=== PATIENT | male | born 1960 ===

== ENCOUNTER 2016-09-06 01:27 | Emergency (ER) | payer OTHER ==
[2016-09-06] MEDS ORDERED: Ondansetron INJ* 2 MG/ML VIAL IV ONE (02:12)
[2016-09-06] MEDS ORDERED: Morphine INJ* 4 MG/ML 1 ML CARPUJECT IV ONE (02:12)
[2016-09-06] MEDS ORDERED: diPHENhydraMINE IV* 50 MG/ML 1 ml VIAL (BENADRYL) IV ONE (03:18)
[2016-09-06 03:19] LABS: Hematocrit 42 % (42-52); Mean Corpuscular HGB Conc 33 g/dl (31-36); Mean Corpuscular Hemoglobin 32 pg (27-31); Mean Corpuscular Volume 96 fL (80-94); Mean Platelet Volume 8 um3 (7.4-10.4); Red Blood Count 4.37 10^6/ul (4.0-5.4); Red Cell Distribution Width 14 % (10.5-15); White Blood Count 11.6 10^3/ul (3.5-10.8)
[2016-09-06 03:27] LABS: BUN/Creatinine Ratio 15.4 (8-20); Calcium 8.9 mg/dL (8.6-10.3); EGFR African American 132.4 (>60)
[2016-09-06 03:30] LABS: Potassium 3.9 mmol/L (3.5-5.0)
[2016-09-06] MEDS ORDERED: oxyCODONE/Acetamin 5/325 MG* TAB PO ONE (05:36)
--- NOTE | 2016-09-06 07:54 | RAD ---
HISTORY: Fall, left arm injury COMPARISONS: None VIEWS: 2, frontal and oblique lateral views of the left elbow FINDINGS: Evaluation is limited by the lack of a true lateral projection. BONE DENSITY: Normal. BONES: There is no acute displaced fracture. There is remote posttraumatic deformity to the mid humerus and proximal ulna. JOINTS: There is no arthropathy. ALIGNMENT: There is no dislocation. SOFT TISSUES: Unremarkable. OTHER FINDINGS: None. IMPRESSION: LIMITED STUDY. NO ACUTE OSSEOUS INJURY. IF SYMPTOMS PERSIST, RECOMMEND REPEAT IMAGING.
--- NOTE | 2016-09-06 07:55 | RAD ---
HISTORY: Fall, left arm injury COMPARISONS: None VIEWS: 2, Frontal internal rotation and external rotation views of the left proximal humerus FINDINGS: BONE DENSITY: Normal. BONES: There is a comminuted somewhat displaced and angulated fracture of the surgical neck of the left humerus. There is remote posttraumatic deformity to the humeral diaphysis.. JOINTS: There is no arthropathy. ALIGNMENT: There is no dislocation. SOFT TISSUES: Unremarkable. OTHER FINDINGS: None. IMPRESSION: COMMINUTED, SOMEWHAT ANGULATED AND DISPLACED FRACTURE OF THE PROXIMAL LEFT HUMERUS
[2016-09-06 11:08] VITALS: BP 130/87
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
== END 2016-09-06 11:39 | disposition home or self-care (01) ==
LOC: ED 01:27
DX: S42.212A Unspecified displaced fracture of surgical neck of left humerus, initial encounter for closed fracture (principal); F10.129 Alcohol abuse with intoxication, unspecified; V19.9XXA Pedal cyclist (driver) (passenger) injured in unspecified traffic accident, initial encounter; Y93.9 Activity, unspecified; Y92.9 Unspecified place or not applicable; Y99.9 Unspecified external cause status
CPT/HCPCS: 36415; 80048; 80320; 85027; 96374; 96375; 99283; A9270-GY; G0480; J1200; J2270; J2405

== ENCOUNTER 2016-09-13 13:42 | Observation (INO) | payer OTHER ==
--- NOTE | 2016-09-13 02:22 | HP ---
HISTORY AND PHYSICAL: DATE OF ADMISSION: 09/13/16 HISTORY OF PRESENT ILLNESS: Porfirio had a CT scan of his left arm. He had a concerning proximal humerus fracture. Therefore, I ordered a CT scan. He says his pain is a lot better controlled since I gave him the pain medication; however, he takes about a quater pill, which helps balance the side effects for him. He denies any numbness or tingling. He denies any fevers or chills. No new injuries. He has been using the sling. The pain is now about a 3/10 as opposed to a 10/10 several days ago. He underwent CT scan yesterday. He is eager to find out the results. PAST MEDICAL HISTORY: Significant for fibromyalgia that was self treated and he no longer has chronic rash as well as a chronic rash in his feet. PAST SURGICAL HISTORY: Appendectomy 20 years ago. CURRENT MEDICATIONS: Include: 1. Vitamin D. 2. Creatine. 3. [place]on. 4. Percocet. 5. Ibuprofen. ALLERGIES: None. FAMILY HISTORY: Significant for father with diabetes, heart disease, CHF, and stroke. Grand mother with rheumatoid arthritis. SOCIAL HISTORY: He lives with his spouse. He works in IT. He denies tobacco. He reports being ambidextrous. He exercises occasionally. He rarely drinks alcohol. REVIEW OF SYSTEMS: A 14-point review of systems reviewed with the patient and significant for rash on his feet, heart palpitation, shortness of breath due to the pain. Negative for fever, chills, DVT, PE, bleeding disorder. Otherwise, reminder of the review of system is negative. PHYSICAL EXAMINATION GENERAL: He is in no acute distress. He is well developed, well nourished. He is alert and oriented x3. HEENT: EOMI. LUNGS: Chest is clear to auscultation. HEART: Regular rate and rhythm. ABDOMEN: Soft, nontender. EXTREMITIES: Examination of left shoulder demonstrates the skin is intact, but there is brushing up and under the arm. He is tender to palpitation over the proximal humerus. He has full range of the motion in elbow, wrist, and hand. He is sensitive to light touch about the first dorsal webspace and long finger and ulnar aspect of the small finger. Sensate about the lateral shoulder, he has 2+ radial pulse. CT scan was reviewed that demonstrates a head split comminuted proximal humerus fracture with the head split. ASSESSMENT AND PLAN: I reviewed the CT scan findings with him. Because of the head split, I am concerned about the perfusion of the head. Therefore, I talked to him about options. He is very young and it is not technically his dominant arm, but even though he is ambidextrous, I do think that because of his young age, I would recommended hemiarthroplasty versus a reverse shoulder arthroplasty. I would prefer to do the hemiarthroplasty because I feel that he is young and we could always transition him to a reverse, hopefully within 5 to 10 years, but there is not a lot of day left and he is on the young edge. However, if intra-op, I am unable to get good purchase and good reduction of the tuberosities, then I may have to consider reverse. Risks and benefits were discussed at length and included but are not limited to bleeding, infection, damage to nerve vessels, surrounding structures, dislocation, need for further surgery, failure to heal, failure of the implant, further fracture, persistent pain, damage to nerve vessels, surrounding structures, need for further surgery , risk of deep venous thrombosis versus anesthesia. He has elected to proceed. We talked about taking care of this on Tuesday. The plan is going to be for left shoulder hemiarthroplasty. We will plan to do this at [facility] [place]. He verbalized understanding, question were invited and answered. I will see the patient back at the time of surgery on 09/13/16. We have checked labs at today's visit. CC: HARRY* [id number]/[facility] #: [id number] BUTCH
[~2016-09-13 13:42] MED LIST: Buffered Lidocaine 1% SYR 3ML* 3 ML/SYR SYRINGE INTRADERM ONE; Famotidine IV* 10 MG/ML 2 ML (20 mg) IV ONE; HYDROcodone/ACETAMIN 5-325 MG* 1 TAB PO PRN; PROCHLORPERAZINE INJ 5 MG/ML 2 ML VIAL IV PRN; Scopolamine 1.5 mg* PATCH TRANSDERM SCH; fentaNYL* 50 MCG/ML 2 ML VIAL (100 MCG VIAL) IV PRN
[2016-09-13] MEDS ORDERED: fentaNYL* 50 MCG/ML 2 ML VIAL (100 MCG VIAL) ONE ×2 (16:12→17:44)
[2016-09-13] MEDS ORDERED: Atracurium* 10 MG/ML 10 ML VIAL ONE ×2 (16:12→19:28)
[2016-09-13] MEDS ORDERED: Midazolam* 1 MG/ML 5 ML VIAL (5 MG) ONE (16:13)
[2016-09-13] MEDS ORDERED: KETAMINE HCL* 50 MG/ML 10 ML VIAL ONE (16:13)
[2016-09-13] MEDS ORDERED: ceFAZolin 2 GM PREMIX (*) 2 GM/50 ML BAG IVPB ONE (16:51)
[2016-09-13] MEDS ORDERED: fentaNYL* 50 MCG/ML 5 ML VIAL (250 MCG VIAL) ONE ×2 (19:07→20:16)
[2016-09-13] MEDS ORDERED: Lidocaine 2% PF * 5 ML VIAL ONE (19:29)
[2016-09-13] MEDS ORDERED: Dexamethasone IV* 4 MG/ML 1 ML (4 MG) ONE (19:29)
[2016-09-13] MEDS ORDERED: Propofol* 10 MG/ML 20 ML BTL IV PUSH ONE (19:29)
[2016-09-13] MEDS ORDERED: PROCHLORPERAZINE INJ 5 MG/ML 2 ML VIAL ONE (19:29)
[2016-09-13] MEDS ORDERED: Phenylephrine INJ* 10 MG/ML 1 ML VIAL (10 MG) ONE (19:29)
[2016-09-13] MEDS ORDERED: Ondansetron INJ* 2 MG/ML VIAL ONE (19:29)
[2016-09-13] MEDS ORDERED: Midazolam* 1 MG/ML 2 ML VIAL (2 MG) ONE (21:16)
[2016-09-13] MEDS ORDERED: Bupivacaine 0.25% SDV* 30 ML ONE (22:20)
[2016-09-13] MEDS ORDERED: Glycopyrrolate IV* 0.2 MG/ML 1 ML VIAL ONE (22:21)
[2016-09-13] MEDS ORDERED: Neostigmine Methylsulfate* 2 MG/2 ML SYRINGE ONE (22:21)
[2016-09-13] MEDS ORDERED: Scopolamine 1.5 mg* PATCH ONE (22:21)
[2016-09-13] MEDS ORDERED: ceFAZolin 1 GM VIAL(*) ONE (22:24)
[2016-09-13] MEDS ORDERED: Metoprolol Tartrate IV* 1 MG/ML 5 ML VIAL ONE (22:34)
[2016-09-13] MEDS ORDERED: Acetaminophen TAB* 325 MG PO PRN (22:48)
[2016-09-13] MEDS ORDERED: Ondansetron INJ* 2 MG/ML VIAL IV PRN (22:48)
[2016-09-13] MEDS ORDERED: diPHENhydraMINE IV* 50 MG/ML 1 ml VIAL (BENADRYL) IV PRN (22:48)
[2016-09-13] MEDS ORDERED: traZODone TAB* 50 MG TAB PO PRN (22:48)
[2016-09-13] MEDS ORDERED: HYDROcodone/ACETAMIN 5-325 MG* 1 TAB PO PRN (23:02)
--- NOTE | 2016-09-13 23:12 | RAD ---
CPT II Codes: 6045F INDICATION: Internal fixation left shoulder. Fluoroscopic services provided for referring physician. 30.3 seconds of fluoroscopy time was used. There is left humeral head replacement and prosthesis present. IMPRESSION: Fluoroscopic services provided for referring physician.
[2016-09-13] MEDS ORDERED: Enoxaparin(*) 30 MG/0.3 ML SYR SUBCUT SCH (23:45)
[2016-09-13] MEDS ORDERED: LORazepam TAB(*) 1 MG PO SCH (23:45)
[2016-09-14] MEDS: ceFAZolin 1 GM in Dextrose (*) 1 GM/50 ML BAG IVPB SCH ×3 (01:59→13:48)
[2016-09-14 06:49] LABS: Hematocrit 25 % (42-52); Hemoglobin 8.6 g/dl (14.0-18.0)
[2016-09-14 07:06] LABS: BUN/Creatinine Ratio 16.3 (8-20); Calcium 8.1 mg/dL (8.6-10.3); EGFR African American 128.6 (>60); Potassium 4.2 mmol/L (3.5-5.0)
--- NOTE | 2016-09-14 07:25 | RAD ---
INDICATION: Left shoulder arthroplasty COMPARISON: September 07, 2016 TECHNIQUE: AP and lateral views were obtained. FINDINGS: There is interval placement of a left shoulder prosthesis which appears normally seated. Comminuted fractures of the proximal humeral metadiaphysis are close apposition. IMPRESSION: LEFT SHOULDER ARTHROPLASTY
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
[2016-09-14] MEDS: HYDROcodone/ACETAMIN 5-325 MG* 1 TAB PO PRN ×2 (07:39→10:10)
--- NOTE | 2016-09-14 08:01 | PN ---
Progress Note - Progress Note SOAP: Subjective: []Patient seen at bedside. Pain well managed left shoulder. Had to be straight cathed this am for urinary retention. Hoping to go home later today. His will pick him up later today if he is stable for discharge. Requesting Jackson to be dosed half a tab q 2 hours. Objective: [] Vital Signs Temp 98.8 F 09/14/16 06:25 Pulse 86 09/14/16 06:25 Resp 16 09/14/16 07:39 BP 111/73 09/14/16 06:25 Pulse Ox 98 09/14/16 06:25 Intake & Output 09/13/16 09/14/16 09/14/16 18:59 06:59 18:59 Intake Total 50 6105 Output Total 1150 Balance 50 4955 Weight 199 lb 3.2 oz Intake: IV Fluids 50 3700 LR 3700 NS 50ML, Cefazolin 2G 50 IVPB 55 ABX - CEFAZOLIN 55 Oral 2350 Output: Urine 0 Straight Cath 850 Estimated Blood Loss 300 Other: # Bowel Movements 0 Laboratory Results - last 24 hr 09/14/16 09/14/16 06:31 06:31 Hgb 8.6 L Hct 25 L Sodium 131 L Potassium 4.2 Chloride 95 L Carbon Dioxide 28 Anion Gap 8 BUN 13 Creatinine 0.80 Est GFR ( Amer) 128.6 Est GFR (Non-Af Amer) 100.0 BUN/Creatinine Ratio 16.3 Glucose 193 H Calcium 8.1 L Left shoulder currently in sling, comfortable Dressings clean, dry and intact moving all digits well, no edema of fingers, moderate eccymosis and edema upper arm/ elbow region neuro intact Assessment: []s/p left shoulder hemiarthroplasty for proximal humerus fracture POD #1 post op urinary retention hx of alcoholism Plan: []Change dosage of Jackson Sling at all times Shower in 2 days and re dress with bandaid follow up in 10-[address] Wyman.
[2016-09-14] MEDS ORDERED: Folic Acid TAB* 1 MG PO SCH (09:00)
[2016-09-14] MEDS ORDERED: Multivitamins/Minerals TAB PO SCH (09:00)
[2016-09-14] MEDS ORDERED: Vitamin THERAPEUTIC TAB PO SCH (09:00)
[2016-09-14] MEDS ORDERED: Docusate CAP* 100 MG PO SCH (09:00)
[2016-09-14] MEDS ORDERED: Thiamine TAB* 100 MG TAB PO SCH (09:00)
[2016-09-14] MEDS ORDERED: HYDROcodone/ACETAMIN 5-325 MG* 1 TAB PO PRN ×2 (11:02→13:57)
[2016-09-14 12:10] VITALS: BP 120/79
[2016-09-15] MEDS ORDERED: Influenza VAC *QUAD* 2016-17* 0.5 ML SYRINGE IM ONE (09:00)
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
[2016-09-16] MEDS ORDERED: Scopolamine PATCH Remove* 1 NOTE MISC PATCH OFF SCH (13:00)
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
== END 2016-09-14 14:45 | disposition home or self-care (01) ==
LOC: OR 13:42 → SSU 09-14 → INTOOBSV 09-14
PROVIDERS: ADMIT Orthopaedic Surgery; ATTEND Orthopaedic Surgery
DX: S42.202A Unspecified fracture of upper end of left humerus, initial encounter for closed fracture (principal); X58.XXXA Exposure to other specified factors, initial encounter; M25.512 Pain in left shoulder; M79.7 Fibromyalgia
CPT/HCPCS: 36415; 76001; 80048; 85014; 85018; 94760; 96374; 96375; 96376; A9270-GY; C1776; G0378; J0690; J0780; J1100; J1650; J2250; J2405; J2704; J3010; J3490